=== PATIENT | female | born 1940 | race Caucasian/White ===

== ENCOUNTER 2018-11-29 13:16 | Outpatient (CLI) | payer MEDICARE | END 2018-11-29 13:17 | disposition critical access hospital (66) | LOC: EMS 13:16 | PROVIDERS: ATTEND Surgery | DX: M25.511 Pain in right shoulder (principal); W10.1XXA Fall (on)(from) sidewalk curb, initial encounter; Y92.512 Supermarket, store or market as the place of occurrence of the external cause | CPT/HCPCS: A0425; A0427 ==

== ENCOUNTER 2018-11-29 13:40 | Emergency (ER) | payer MEDICARE, OTHER ==
--- NOTE | 2018-11-29 13:47 | ED Physician Documentation ---
PD HPI UPPER EXT INJURY - Stated complaint Stated Complaint: GLF - History obtained from History obtained from: Patient - History of Present Illness Location: Right (She had a trip and fall landing directly on her right shoulder. No loss of consciousness or other injuries. She has been ambulatory since the accident. On route she received a total of 100 mcg of fentanyl. She was feeling a little woozy on the ambulance but better now. No headache. No blood thinners.) Review of Systems Ten Systems: 10 systems reviewed and negative Constitutional: denies: Fever Nose: denies: Rhinorrhea / runny nose, Epistaxis Cardiac: denies: Chest pain / pressure, Palpitations Respiratory: denies: Dyspnea, Cough PD PAST MEDICAL HISTORY - Past Medical History Past Medical History: Yes Cardiovascular: Hypertension Respiratory: Asthma - Present Medications Home Medications: Ambulatory Orders Medication Instructions Recorded Confirmed Albuterol 2.5 mg INH Q4H PRN 11/29/18 11/29/18 Aspirin 81 mg PO DAILY 11/29/18 11/29/18 Fluticasone/Salmeterol [Advair 1 each IH DAILY PRN 11/29/18 11/29/18 100-50 Diskus] Hydrocodone/Acetaminophen 1 - 2 each PO Q6H PRN #20 tablet 11/29/18 [Hydrocodon-Acetaminophen 5-325] Losartan [Cozaar] 50 mg PO DAILY 11/29/18 11/29/18 Pravastatin [Pravachol] 40 mg PO DAILY 11/29/18 11/29/18 diltiaZEM CD [Cardizem Cd] 180 mg PO DAILY 11/29/18 11/29/18 - Allergies Allergies/Adverse Reactions: Allergies Allergy/AdvReac Type Severity Reaction Status Date / Time ciprofloxacin [From Cipro] Allergy Unknown Verified 11/29/18 13:46 morphine AdvReac Respiratory Verified 11/29/18 13:53 - Living Situation Living Arrangement: reports: At home (Lives in [place] and has a second home in [place]) - Social History Does the pt drink ETOH?: No Does the pt have substance abuse?: No PD ED PE NORMAL - Vitals Vital signs reviewed: Yes - General General: Alert and oriented X 3, No acute distress - HEENT HEENT: PERRL, EOMI - Neck Neck: Supple, no meningeal sign, No bony TTP - Cardiac Cardiac: RRR, No murmur - Respiratory Respiratory: No respiratory distress, Clear bilaterally - Abdomen Abdomen: Non tender - Extremities Extremities: Other (Tender to the right upper humerus without deformity or diminished sensation over the deltoid or in the hand. Severely limited range of motion due to pain. No underlying rib tenderness.) - Neuro Neuro: Alert and oriented X 3, Normal speech - Psych Psych: Normal mood, Normal affect Results - Vitals Vitals: Vital Signs - 24 hr 11/29/18 13:50 Temperature 36.6 C Heart Rate 67 Respiratory 14 Rate Blood Pressure 139/55 H O2 Saturation 97 Oxygen O2 Source Room air - Rads (name of study) R humerus Radiology: EMP read contemporaneously (Comminuted fracture of the head and neck of right humerus) PD MEDICAL DECISION MAKING - ED course ED course: 78-year-old woman with a ground-level fall directly under the right shoulder, his exam is consistent with an x-ray prove a proximal humeral fracture. She also had some scrapes and bruising on the forearm but these were nontender. Normal neurovascular status in the hand. On reexamination still no neck tenderness, evidence of head injury, abdominal tenderness or rib tenderness. Departure - Departure Disposition: 01 Home, Self Care Clinical Impression: Fracture of humerus, right, closed Qualifiers: Encounter type: initial encounter Humerus Location: surgical neck Fracture morphology: 2-part Fracture alignment: displaced Qualified Code(s): S42.221A - 2-part displaced fracture of surgical neck of right humerus, initial encounter for closed fracture Condition: Good Record reviewed to determine appropriate education?: Yes Instructions: Humerus Fx Prescriptions: Hydrocodone/Acetaminophen [Hydrocodon-Acetaminophen 5-325] 1 - 2 each PO Q6H PRN #20 tablet PRN Reason: pain Comments: Follow-up with an orthopedic surgeon near home in the [facility] within the week. You will probably need a referral from your primary care physician. Return for new or worsening symptoms. Do not drink or drive while taking narcotic pain medication. Note that many narcotic pain relievers also contain Tylenol/acetaminophen. Please ensure that your total dose of acetaminophen from all sources does not exceed 3 g (3000 mg) per day. You may get constipated while on this medication. Take a stool softener such as Colace twice a day while you are on it. Also add an sslk-auo-tmtmsty laxative such as senna or MiraLAX on any day that you do not have a bowel movement. If you received a narcotic pain medication or sedative while in the emergency department, do not drive for the next 24 hours.
[2018-11-29] MEDS ORDERED: KETOROLAC 15 MG/ML VIAL IVP STA (14:03)
[2018-11-29] MEDS ORDERED: fentaNYL 100 MCG/2 ML VIAL IVP STA (14:03)
[2018-11-29] MEDS ORDERED: HYDROcod/ACETAM 5/325 MG TABLET PO STA (14:39)
--- NOTE | 2018-11-29 14:40 | XRAY Report ---
Reason: arm inj Procedure Date: 11/29/2018 Accession Number: [id number] / [id number] Procedure: XR - Humerus RT CPT Code: FULL RESULT: EXAM: RIGHT HUMERUS RADIOGRAPHY EXAM DATE: 11/29/2018 02:28 PM. CLINICAL HISTORY: Arm inj. COMPARISON: None. TECHNIQUE: 2 views. FINDINGS: Bones: Comminuted impaction fracture of the right humeral head and neck. Joints: Normal. No effusions or subluxations in the visualized shoulder or elbow joints. Soft Tissues: Normal. No soft tissue swelling. IMPRESSION: Comminuted impaction fracture of the right humeral head and neck. RADIA
[2018-11-29 15:13] VITALS: BP 144/58
== END 2018-11-29 15:14 | disposition home or self-care (01) ==
LOC: EDUNIT# → ED 13:40
DX: S42.221A 2-part displaced fracture of surgical neck of right humerus, initial encounter for closed fracture (principal); S50.11XA Contusion of right forearm, initial encounter; S50.811A Abrasion of right forearm, initial encounter; W01.0XXA Fall on same level from slipping, tripping and stumbling without subsequent striking against object, initial encounter; I10 Essential (primary) hypertension; Z79.82 Long term (current) use of aspirin
CPT/HCPCS: 73060; 96374; 99283; A9270

== ENCOUNTER 2020-01-09 16:47 | Emergency (ER) | payer MEDICARE ==
[2020-01-09] MEDS ORDERED: TETANUS/DIPHTHERIA/PERTUSSIS 0.5 ML SYRINGE IM ONE (17:04)
--- NOTE | 2020-01-09 17:06 | ED Physician Documentation ---
PD HPI MAJOR TRAUMA - Stated complaint Stated Complaint: FACIAL LAC/FALL - Chief complaint Chief Complaint: Trauma Hd/Nk - History obtained from History obtained from: Patient - Additional information Additional information: 79-year-old woman tripped over a hose and fell forward injuring her face, left shoulder, and right wrist. She has a wound above the right eyebrow. The thing that hurts the most is the left upper humerus but declines pain medication on initial evaluation. No other injuries. She is not up-to-date on tetanus. Review of Systems Constitutional: reports: Reviewed and negative Cardiac: reports: Reviewed and negative Respiratory: reports: Reviewed and negative PD PAST MEDICAL HISTORY - Past Medical History Cardiovascular: Hypertension Respiratory: Asthma - Present Medications Home Medications: Ambulatory Orders Medication Instructions Recorded Confirmed Albuterol 2.5 mg INH Q4H PRN 11/29/18 11/29/18 Aspirin 81 mg PO DAILY 11/29/18 11/29/18 Fluticasone/Salmeterol [Advair 1 each IH DAILY PRN 11/29/18 11/29/18 100-50 Diskus] Hydrocodone/Acetaminophen 1 - 2 each PO Q6H PRN #20 tablet 11/29/18 [Hydrocodon-Acetaminophen 5-325] Losartan [Cozaar] 50 mg PO DAILY 11/29/18 11/29/18 Pravastatin [Pravachol] 40 mg PO DAILY 11/29/18 11/29/18 diltiaZEM CD [Cardizem Cd] 180 mg PO DAILY 11/29/18 11/29/18 Hydrocodone/Acetaminophen 1 - 2 each PO Q6H PRN #14 tablet 01/09/20 [Hydrocodon-Acetaminophen 5-325] Lidocaine Patch 5% [Lidoderm Patch] 1 patch TOP DAILY PRN #10 patch 01/09/20 Ondansetron Odt [Zofran] 4 mg TL Q6H PRN #10 tablet 01/09/20 - Allergies Allergies/Adverse Reactions: Allergies Allergy/AdvReac Type Severity Reaction Status Date / Time ciprofloxacin [From Cipro] Allergy Unknown Verified 01/09/20 17:01 morphine AdvReac Respiratory Verified 01/09/20 17:01 - Social History Does the pt smoke?: No Smoking Status: Never smoker Does the pt drink ETOH?: No Does the pt have substance abuse?: No PD ED PE NORMAL - Vitals Vital signs reviewed: Yes - General General: Alert and oriented X 3, No acute distress - HEENT HEENT: PERRL, EOMI, Other (There is an abrasion /shallow lac above the right eyebrow with some swelling there. No other facial bony tenderness.) - Neck Neck: Supple, no meningeal sign, No bony TTP - Extremities Extremities: Other (Quite tender to the left upper humerus and unable to lift that arm off the bed. No deformity. There is a suggestion of a slight scooped deformity of the right wrist and moderate tenderness there but decent range of motion. Normal neurovascular function in both hands.) - Neuro Neuro: Alert and oriented X 3, Normal speech Results - Vitals Vitals: Vital Signs - 24 hr 01/09/20 01/09/20 16:57 18:00 Temperature 36.8 C 36.6 C Heart Rate 94 98 Respiratory 20 12 Rate Blood Pressure 184/66 H 180/57 H O2 Saturation 98 99 Oxygen O2 Source Room air - Rads (name of study) CT Head Radiology: EMP read contemporaneously (NAD) L humerus and R wrist XR Radiology: EMP read contemporaneously (Impacted and comminuted head and neck fractures of left humerus and a nondisplaced Colles' fracture with some impaction on the right.) Procedures - Laceration (location) R eyebrow Length in cm: 1.5 Wound type: Stellate, Superficial Wound Preparation: Irrigated copiously NS Skin layer closure: Dermabond Other: Tetanus UTD (initially said she needed one and it was ordered, but she decided later that she was current) Complexity: Simple - Splint (location) RUE Splint applied by: Tech Type of splint: Fiberglass, Short arm, Volar cock up Other: Patient tolerated well, No complications, Neurovascular intact, Sling provided (on left for humerus) PD MEDICAL DECISION MAKING - ED course ED course: 79-year-old woman presents after a fall, she has an eyebrow laceration that was Dermabonded, has a right Colles' fracture and left humeral fracture. She does have supportive family but I also called [facility] to see if there were options for in-home care. There are not over the weekend but they will write an email to her PCP to see about arrangements on Saturday. Departure - Departure Disposition: 01 Home, Self Care Clinical Impression: Fall Left humeral fracture Qualifiers: Encounter type: initial encounter Humerus Location: proximal Fracture type: closed Fracture alignment: displaced Fracture, Colles, right, closed Qualifiers: Encounter type: initial encounter Qualified Code(s): S52.531A - Colles' fracture of right radius, initial encounter for closed fracture Facial laceration Qualifiers: Encounter type: initial encounter Qualified Code(s): S01.81XA - Laceration without foreign body of other part of head, initial encounter Condition: Good Record reviewed to determine appropriate education?: Yes Instructions: ED Laceration Facial Skin Glue, ED Fx Upper Ext Prescriptions: Hydrocodone/Acetaminophen [Hydrocodon-Acetaminophen 5-325] 1 - 2 each PO Q6H PRN #14 tablet PRN Reason: pain Lidocaine Patch 5% [Lidoderm Patch] 1 patch TOP DAILY PRN #10 patch PRN Reason: pain Ondansetron Odt [Zofran] 4 mg TL Q6H PRN #10 tablet PRN Reason: Nausea / Vomiting Comments: Keep the splint on the right arm on and dry, do not remove it or get it wet. You can briefly remove the sling on the left for showering etc. but keep it on for the most part. Call your PCP at [facility] on Saturday to help arrange for home health care and also you need a referral back to your orthopedic physician. When you have that appointment take the copy of the x-rays on CD with you. [facility] did give us numbers for home health care, the 24-hour number is [phone] in the Saturday through Saturday number is Do not drink or drive while taking narcotic pain medication. Note that many narcotic pain relievers also contain Tylenol/acetaminophen. Please ensure that your total dose of acetaminophen from all sources does not exceed 3 g (3000 mg) per day. You may get constipated while on this medication. Take a stool softener such as Colace twice a day while you are on it. Also add an tiza-xer-kscdymn laxative such as senna or MiraLAX on any day that you do not have a bowel movement. If you received a narcotic pain medication or sedative while in the emergency department, do not drive for the next 24 hours.
--- NOTE | 2020-01-09 17:47 | CT Report ---
PROCEDURE: HEAD WO INDICATIONS: head injury TECHNIQUE: Noncontrast 4.5 mm thick angled axial sections acquired from the foramen magnum to the vertex. For r adiation dose reduction, the following was used: automated exposure control, adjustment of mA and/or kV according to patient size. COMPARISON: None. FINDINGS: Image quality: Excellent. CSF spaces: Basal cisterns are patent. No extra-axial fluid collections. Ventricles are normal in size and shape. Brain: No midline shift. No intracranial masses or hemorrhage. Calcification is noted along the fa lx. Avalos-white matter interface is normal. Skull and face: There is a right forehead hematoma seen, with soft tissue laceration. No associated displaced chondral fracture can be seen. Calvarium and visualized facial bones are intact, without monroe spicious lesions. Sinuses: Visualized sinuses and mastoids are clear. 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 IMPRESSION: Right forehead laceration and hematoma, without associated fracture or associated intracranial hemorr josefa identified. Reviewed by: Cassius Brandon MD on 01/09/2020 4:45 PM CACH[facility] Approved by: Cassius Brandon MD on 01/09/2020 4:45 PM AKJOSE DE JESUS Station ID: [id number]
[2020-01-09 18:01] VITALS: BP 180/57
[2020-01-09] MEDS ORDERED: HYDROcod/ACETAM 5/325 MG TABLET PO STA (18:07)
--- NOTE | 2020-01-09 18:08 | XRAY Report ---
PROCEDURE: Wrist 4 View RT INDICATIONS: wrist inj TECHNIQUE: 4 views of the wrist were acquired. COMPARISON: Correlation is made with the accompanying humerus x-ray and head CT. FINDINGS: This study is limited by nonstandard positioning. Bones: There is an impacted, comminuted, intra-articular fracture of the distal radius, with dorsal a ngulation of fracture fragments. Degenerative changes and osteopenia can be seen throughout. Soft tissues: No suspicious soft tissue calcifications. Distal arterial calcifications can be seen. IMPRESSION: Impacted distal radius fracture, with mild dorsal angulation. Intra-articular involvement is seen. Osteopenia and degenerative changes are noted. Reviewed by: Cassius Brandon MD on 01/09/2020 5:06 PM C[facility]RO Approved by: Cassius Brandon MD on 01/09/2020 5:06 PM C[facility]RO Station ID: [id number]
--- NOTE | 2020-01-09 18:09 | XRAY Report ---
PROCEDURE: Humerus LT INDICATIONS: left humerus inj TECHNIQUE: 2 views of the humerus were acquired. COMPARISON: Correlation is made with the accompanying wrist x-rays and the accompanying head CT. Cor relation is made with plain films of the right humerus dated 11/29/2018. FINDINGS: Bones: There is an impacted, comminuted fracture of the left humeral head and neck. Osteopenia and degenerative changes are seen. The visualized ribs are unremarkable. No suspicious lyt ic or blastic lesions are seen. Soft tissues: No suspicious soft tissue calcifications. The visualized lung demonstrates a normal a ppearance. IMPRESSION: Impacted, comminuted fracture of the left humeral head and neck. Reviewed by: Cassius Brandon MD on 01/09/2020 5:07 PM C[facility] Approved by: Cassius Brandon MD on 01/09/2020 5:07 PM CACHORRO Station ID: [id number]
[2020-01-09] MEDS ORDERED: LIDOCAINE PATCH 5% TOP STA (18:53)
[2020-01-09] MEDS ORDERED: HYDROcod/ACET 5/325 Prepack 4 PO STA (18:53)
[2020-01-09] MEDS ORDERED: ONDANSETRON ODT 4 MG Prepack 2 TL STA (18:53)
== END 2020-01-09 19:32 | disposition home or self-care (01) ==
LOC: ED 16:47
DX: S01.111A Laceration without foreign body of right eyelid and periocular area, initial encounter (principal); S52.531A Colles' fracture of right radius, initial encounter for closed fracture; S42.292A Other displaced fracture of upper end of left humerus, initial encounter for closed fracture; W01.0XXA Fall on same level from slipping, tripping and stumbling without subsequent striking against object, initial encounter; I10 Essential (primary) hypertension
CPT/HCPCS: 12011; 29125; 70450; 73060; 73110; 99283; 99284; A9270